=== PATIENT | female | born 1995 | race Caucasian/White ===

== ENCOUNTER 2019-11-07 16:37 | Emergency (ER) | payer SELFPAY ==
[~2019-11-07] VITALS: Ht 170.2 cm; Wt 96.2 kg
[2019-11-07 16:52] VITALS: Ht 170.2 cm; Wt 96.2 kg
[2019-11-07 18:40] VITALS: BP 115/83
== END 2019-11-07 18:46 | disposition home or self-care (01) ==
LOC: ED 16:37
DX: S39.012A Strain of muscle, fascia and tendon of lower back, initial encounter (principal); J45.909 Unspecified asthma, uncomplicated; X58.XXXA Exposure to other specified factors, initial encounter; Y93.89 Activity, other specified; Y92.89 Other specified places as the place of occurrence of the external cause; Y99.8 Other external cause status
CPT/HCPCS: J1885; Q0162